=== PATIENT | female | born 1990 | race American Indian/Alaskan Native ===

== ENCOUNTER 2019-09-23 17:41 | Emergency (ER) | payer MEDICAID ==
--- NOTE | 2019-09-23 18:23 | Event Note ---
ED Screening Note Date of service: 09/23/19 Time: 18:20 ED Screening Note: 29-year-old female that is 6 weeks presents to the emergency room for nausea and vomiting. Patient reports that the prescribed promethazine is not helping with her nausea. Patient is 4 para 2 miscarriage 1. Followed by [facility]. No vag bleeding or vag discharge and abdomen pain. This initial assessment/diagnostic orders/clinical plan/treatment(s) is/are subject to change based on patients health status, clinical progression and re- assessment by fellow clinical providers in the ED. Further treatment and workup at subsequent clinical providers discretion. Patient/guardian urged not to elope from the ED as their condition may be serious if not clinically assessed and managed. Initial orders include:
[2019-09-23] MEDS ORDERED: diphenhydrAMINE 50 MG/ML VIAL IV ONE (20:23)
[2019-09-23] MEDS ORDERED: SODIUM CHLORIDE 0.9% 1000 ML 1,000 ML IV ONE (20:23)
[2019-09-23] MEDS ORDERED: FAMOTIDINE 20 MG/2 ML INJ IV ONE (20:23)
[2019-09-23] MEDS ORDERED: METOCLOPRAMIDE 10 MG/2 ML INJ IV ONE (20:23)
[2019-09-23 20:38] LABS: Basophils % (Auto) 0.5 % (0.0-1.8); Eosinophils # (Auto) 0.1 K/mm3 (0.0-0.4); Eosinophils % (Auto) 0.7 % (0.0-4.3); Hemoglobin 13.6 gm/dl (10.1-14.3); Lymphocytes # (Auto) 1.5 K/mm3 (1.2-5.4); Mean Corpuscular HGB Conc 33 % (30-34); Mean Corpuscular Volume 87 fl (79-97); Monocytes # (Auto) 0.5 K/mm3 (0.0-0.8); Monocytes % (Auto) 5.9 % (0.0-7.3); Platelet Count 307 K/mm3 (140-440); Red Blood Count 4.74 M/mm3 (3.65-5.03)
[2019-09-23 21:01] LABS: Alanine Aminotransferase 31 units/L (7-56); Albumin 3.9 g/dL (3.9-5); BUN/Creatinine Ratio 11; Blood Urea Nitrogen 9 mg/dL (7-17); Calcium 9.1 mg/dL (8.4-10.2); Hemolysis Index 7
[2019-09-24 02:36] LABS: Bacteria,Urine 3+ /HPF (Negative); Bilirubin,Urine NEG (Negative); Blood,Urine NEG (Negative); Color,Urine Amber (Yellow); Mucus,Urine 2+ /HPF
[2019-09-24] MEDS ORDERED: ACETAMINOPHEN 500 MG TAB PO ONE (02:45)
[2019-09-24] MEDS ORDERED: cefTRIAXone/NS 1 GM/50 ML 1 GM/50 ML BAG IV ONE (02:45)
[2019-09-24] MEDS ORDERED: ONDANSETRON 4 MG/2 ML INJ IV ONE (02:45)
--- NOTE | 2019-09-24 03:52 | Emergency Department Report ---
ED N/V/D HPI - General Chief complaint: Nausea/Vomiting/Diarrhea Stated complaint: N/V Source: patient Mode of arrival: Ambulatory Limitations: No Limitations - History of Present Illness Initial comments: Patient is a A1 29-year-old -[place] female who is approximately 6 weeks gestation who presents to the ED with intractable nausea and vomiting and mild epigastric pain for the last 2 days. Patient states that she has not been able to keep anything down because of persistent nausea and vomiting. Patient states that she has been taking her promethazine tablets but is unable to keep the tablets down because of persistent nausea and vomiting. Patient states that her symptoms got worse in the last 12 hours. Patient denies abdominal pain, diarrhea, dysuria, urinary frequency and urgency, vaginal bleeding, vaginal discharge, low back pain, dizziness, syncope, chest pain, shortness of breath, cough, sore throat or headache, hematemesis or hematochezia. MD complaint: nausea, vomiting -: Sudden, days(s) (2) Description of Vomiting: food contents Associated Abdominal Pain: Yes (Mild epigastric pain) Location: epigastric Radiation: none Severity: severe Pain Scale: 8 Quality: cramping, aching, dull Consistency: constant Improves with: none Worsens with: eating, vomiting Context: other () Associated Symptoms: denies other symptoms, loss of appetite, malaise, nausea/vomiting. denies: myalgias, chest pain, cough, diaphoresis, fever/chills, headaches, rash, dysuria, shortness of breath, syncope, weakness - Related Data Previous Rx's Medication Instructions Recorded Last Taken Type Nitrofurantoin [place]/M-Cryst 100 mg PO Q12HR #20 capsule 10/22/13 Unknown Rx [Macrobid] Promethazine [Phenergan] 25 mg PO Q6H PRN #12 tablet 10/22/13 Unknown Rx Acetaminophen [Tylenol] 500 mg PO Q6HR PRN #30 tablet 09/24/19 Unknown Rx Famotidine [Pepcid] 20 mg PO BID #30 tablet 09/24/19 Unknown Rx Promethazine [Phenergan SUPPOS] 25 mg NM Q6HR PRN #30 supp.rect 09/24/19 Unknown Rx cephALEXin [Keflex] 500 mg PO Q8HR #30 cap 09/24/19 Unknown Rx Allergies Allergy/AdvReac Type Severity Reaction Status Date / Time orange (food color) Allergy Hives Verified 10/21/13 20:34 ED Review of Systems ROS: Stated complaint: N/V Other details as noted in HPI Constitutional: denies: chills, fever Eyes: denies: eye pain, eye discharge, vision change ENT: denies: ear pain, throat pain Respiratory: denies: cough, shortness of breath, wheezing Cardiovascular: denies: chest pain, palpitations Endocrine: no symptoms reported Gastrointestinal: abdominal pain, nausea, vomiting. denies: diarrhea Genitourinary: denies: urgency, dysuria, discharge Musculoskeletal: denies: back pain, joint swelling, arthralgia Skin: denies: rash, lesions Neurological: denies: headache, weakness, paresthesias Psychiatric: denies: anxiety, depression Hematological/Lymphatic: denies: easy bleeding, easy bruising ED Past Medical Hx - Past Medical History Previous Medical History?: Yes Hx Heart Attack/AMI: Yes (2 X ???) Additional medical history: Vaginal delivery x 2 - Surgical History Past Surgical History?: Yes Additional Surgical History: Umbilical hernia repair @ age 2 - Social History Smoking Status: Never Smoker Substance Use Type: None - Medications Home Medications: Home Medications Medication Instructions Recorded Confirmed Last Taken Type Nitrofurantoin [place]/M-Cryst 100 mg PO Q12HR #20 capsule 10/22/13 Unknown Rx [Macrobid] Promethazine [Phenergan] 25 mg PO Q6H PRN #12 tablet 10/22/13 Unknown Rx Acetaminophen [Tylenol] 500 mg PO Q6HR PRN #30 tablet 09/24/19 Unknown Rx Famotidine [Pepcid] 20 mg PO BID #30 tablet 09/24/19 Unknown Rx Promethazine [Phenergan SUPPOS] 25 mg NM Q6HR PRN #30 supp.rect 09/24/19 Unknown Rx cephALEXin [Keflex] 500 mg PO Q8HR #30 cap 09/24/19 Unknown Rx ED Physical Exam - General Limitations: No Limitations General appearance: alert, in no apparent distress - Head Head exam: Present: atraumatic, normocephalic, normal inspection - Eye Eye exam: Present: normal appearance, PERRL, EOMI Pupils: Present: normal accommodation - ENT ENT exam: Present: normal exam, normal orophraynx, mucous membranes moist, TM's normal bilaterally - Neck Neck exam: Present: normal inspection, full ROM. Absent: tenderness, lymphadenopathy - Respiratory Respiratory exam: Present: normal lung sounds bilaterally. Absent: respiratory distress, wheezes, rales, chest wall tenderness, accessory muscle use, decreased breath sounds - Cardiovascular Cardiovascular Exam: Present: regular rate, normal rhythm, normal heart sounds. Absent: systolic murmur, diastolic murmur, rubs, gallop - GI/Abdominal GI/Abdominal exam: Present: soft, normal bowel sounds. Absent: tenderness, guarding, hyperactive bowel sounds - Extremities Exam Extremities exam: Present: normal inspection, full ROM, normal capillary refill - Back Exam Back exam: Present: normal inspection, full ROM. Absent: tenderness, CVA tenderness (R), CVA tenderness (L), muscle spasm, paraspinal tenderness - Neurological Exam Neurological exam: Present: alert, oriented X3, CN II-XII intact, normal gait, reflexes normal - Psychiatric Psychiatric exam: Present: normal affect, normal mood - Skin Skin exam: Present: warm, dry, intact, normal color. Absent: rash ED Course Vital Signs 09/23/19 09/23/19 09/24/19 17:46 23:44 04:09 Temperature 98.6 F 98.3 F Pulse Rate 88 70 71 Respiratory 16 18 18 Rate Blood Pressure 126/82 Blood Pressure 107/65 105/66 [Left] O2 Sat by Pulse 99 98 97 Oximetry ED Medical Decision Making - Lab Data Result diagrams: 09/23/19 20:30 09/23/19 20:30 - Medical Decision Making This is a A1 29-year-old -[place] female who is approximately 6 weeks gestation who presents to the ED with intractable nausea and vomiting and mild epigastric pain for the last 2 days. Patient states that she has not been able to keep anything down because of persistent nausea and vomiting. Patient states that she has been taking her promethazine tablets but is unable to keep the tablets down because of persistent nausea and vomiting. Patient states that her symptoms got worse in the last 12 hours. In the ED, patient is alert and oriented x3 and is not in distress but appears to be uncomfortable. Patient was treated for pain, also given antacids and antiemetics as well as normal saline 1 L IV bolus. Lab test results [place] [address], mi ld hyponatremia of 135 mmol/L and significant urinary tract infection in the urinalysis. On reevaluation, patient passed oral fluid challenge in the ED. Patient felt better, patient is ambulatory in the ED with no difficulty. Patient will discharge home on antiemetics suppositories as well as oral antibiotics and antacids with pain medications. Patient was advised to maintain a clear liquid diet for 12 to 24 hours and to follow-up with [facility] physician in 5 to 7 days for reevaluation. Patient was also advised to return to the ED immediately if symptoms get worse. - Differential Diagnosis hyperemesis; dehydration; GERD; UTI; Gastritis Critical care attestation.: If time is entered above; I have spent that time in minutes in the direct care of this critically ill patient, excluding procedure time. ED Disposition Clinical Impression: Hyperemesis gravidarum, Acute urinary tract infection Disposition: TO HOME OR SELFCARE Is pt being admited?: No Does the pt Need Aspirin: No Condition: Stable Instructions: Hyperemesis Gravidarum (ED), Urinary Tract Infection in Women (ED) Additional Instructions: Maintain a clear liquid diet for 12 to 24 hours, take nausea medicine as advised and drink plenty fluids. Follow-up with your [facility] physician as advised. Return to the ED immediately if symptoms get worse. Prescriptions: Acetaminophen [Tylenol] 500 mg PO Q6HR PRN #30 tablet PRN Reason: Pain , Severe (7-10) cephALEXin [Keflex] 500 mg PO Q8HR #30 cap Famotidine [Pepcid] 20 mg PO BID #30 tablet Promethazine [Phenergan SUPPOS] 25 mg NM Q6HR PRN #30 supp.rect PRN Reason: Nausea Referrals: CHARLENE JUDGE MD [Staff Physician] - 3-5 Days Time of Disposition: 03:51 Print Language: ARABIC
[2019-09-24 04:12] VITALS: BP 105/66
== END 2019-09-24 04:11 | disposition home or self-care (01) ==
LOC: ED 17:41
DX: O23.31 Infections of other parts of urinary tract in pregnancy, first trimester (principal); O21.0 Mild hyperemesis gravidarum; Z3A.01 Less than 8 weeks gestation of pregnancy; Z91.018 Allergy to other foods
CPT/HCPCS: 36415; 80053; 81001; 83690; 84702; 84703; 85025; 87086; 96361; 96365; 96375; 99283; J0696; J1200; J2405; J2765; J7030

== ENCOUNTER 2021-11-15 03:10 | Emergency (ER) | payer MEDICAID ==
[2021-11-15 03:16] VITALS: BP 140/94
--- NOTE | 2021-11-15 03:45 | XRay Report ---
CHEST 2 VIEWS INDICATION / CLINICAL INFORMATION: difficulty breathing. COMPARISON: None available. FINDINGS: SUPPORT DEVICES: None. HEART / MEDIASTINUM: No significant abnormality. LUNGS / PLEURA: No significant pulmonary abnormality. No significant pleural effusion. No pneumothora x. ADDITIONAL FINDINGS: No significant additional findings. IMPRESSION: 1. No acute abnormality of the chest. Signer Name: Ralf Doyle MD Signed: 11/15/2021 3:40 AM Workstation Name: [id number]
== END 2021-11-15 10:00 | disposition left against medical advice (07) ==
LOC: ED 03:10
DX: R06.00 Dyspnea, unspecified (principal); Z53.21 Procedure and treatment not carried out due to patient leaving prior to being seen by health care provider
CPT/HCPCS: 71046